=== PATIENT | female | born 1960 | race Caucasian/White ===

== ENCOUNTER 2024-04-01 23:29 | Inpatient (IN) | payer MEDICARE, OTHER, SELFPAY ==
[2024-04-01 19:52] VITALS: BP 151/131
[2024-04-01 21:00] VITALS: BP 104/80
[2024-04-01] MEDS: DILAUDID 0.5 MG IV (21:29)
--- NOTE | 2024-04-01 21:41 | ED.GENMED ---
History of Present Illness
General
Chief Complaint: Musculo-Skeletal Complaint
Source: patient and ambulance crew
Time Seen by Provider: 04/01/24 20:15
History of Present Illness
History of Present Illness:
63-year-old female who presents after she fell in a grocery store. She states she think she just tripped over her shoe. She complains of pain in her left elbow. Denies head injury. No neck pain. No back pain. No pain in her knees or hips.
Reports pain in her left elbow with some radiation toward her wrist. Has a history of ORIF of the left wrist. EMS reports that they gave her fentanyl (100 mcg)
Phy Exam
Physical Exam
Physical Exam:
CONSTITUTIONAL Vital signs reviewed, Patient alert and oriented to person, place and time. Well-appearing
HEAD atraumatic, normocephalic.
EYES eyelids normal to inspection, Extraocular muscles intact, Conjunctiva normal, Sclera normal.
NECK normal range of motion, Trachea midline, no jugular venous distention. No midline tenderness.
RESP no respiratory distress
BACK No obvious deformities
UPPER EXTREMITY Gross Range of motion normal, gross motor strength normal. Moderate tenderness throughout the area of the left elbow. No proximal humerus tenderness. No clavicular tenderness. No tenderness at the distal forearm or wrist. Hand
nontender. Normal distal cap refill. Normal gross radial pulse. Small less than 1 cm open wound noted just distal to the olecranon. Right upper extremity on affect
LOWER EXTREMITY Gross range of motion normal, Gross motor strength normal. Normal full range of motion bilateral knees and bilateral hips.
NEURO Speech normal, No focal motor deficits include, [place] coma scale 15, Memory normal, Cranial Nerves intact to screening exam.
SKIN Skin warm, dry, and normal in color.
PSYCHIATRIC Patient oriented to person place and time, Normal affect.
Course
Orders/Labs/Results
Orders:
Orders
04/01/24 20:03
CR Hand - Left Min 3 Views Urgent
Comment:
Reason For Exam: fall, trauma
CR Humerus - Left Min 2 Views* Urgent
Comment:
Reason For Exam: fall, trauma
Forearm, Left 2 View [CR Forearm - Left 2 View] Urgent
Comment:
Reason For Exam: fall, trauma
04/01/24 21:25
HYDROmorphone [Dilaudid] 0.5 mg IV NOW STA
04/01/24 21:42
CeFAZolin 2 GRAM [Ancef] 2 grams in 10 ml IV NOW
04/01/24 22:00
Flush (0.9% Sodium Chloride) [Flush (Nss)] See Dose Instructions IV PER PROTOCOL
04/01/24 22:16
Vital Signs- Treatment ONCE
Frequency: Once
04/01/24 22:44
Basic Metabolic Panel Urgent
Complete Blood Count/With Diff Urgent
04/01/24 23:03
Ondansetron Injectable [Zofran] 4 mg .ROUTE .STK-MED ONE
04/01/24 23:05
Ondansetron Injectable [Zofran] 4 mg IV NOW STA
04/01/24 23:12
EKG [Electrocardiogram (*1)] Urgent
Reason for Study: PreOp
04/01/24 23:17
Admit/Transfer Patient As Directed
Co-Sign Provider:
Level of Care: Inpatient admission
Assign to:: Telemetry
Physician / Group: Arnaldo
Diagnosis: Comminuted Ulna Fracture
Reason for Telemetry: Arrhythmia
Date to Stop Telemetry: 04/04/24
Time to Stop Telemetry: 11:00
Reason for Hospitalization: Comminuted Ulna Fracture
Expected length of stay greater than two midnights?: Yes
ELOS- Estimated Length of Stay in days: 3
I certify the patient meets the requirements for IP care: Yes
PRN Pain Medication Management As Directed
May give lesser potent ordered pain med per pt: Yes
preference::
Protocol:: Medication orders for pain may be administered in a
manner that supports deferring to patient preference
when the pt is:
- Requesting an ordered lesser potent pain medication.
Least to most potent pain medications are defined
as: acetaminophen < NSAID < tramadol < opioids
(morphine, oxycodone, hydromorphone).
- Requesting a lesser dose of the same medication IF
ORDERED.
- Requesting a less intrusive route of administration
if both routes are prescribed by the provider (PO <
IV).
04/01/24 23:20
Code Status As Directed
Resuscitation Status: Full Code
04/02/24 01:25
HYDROmorphone [Dilaudid] 0.5 mg IV Q4HPRN PRN
04/02/24 01:54
Acetaminophen [Tylenol] 650 mg PO Q4HPRN PRN
Lactated Ringers [Lr] 1,000 ml IV 80 mls/hr
Ondansetron Injectable [Zofran] 4 mg IV Q6HPRN PRN
VANCOMYCIN Pharmacy to Dose [VANCOCIN Pharmacy to Dose] 1 each Pharmacy To Prepare [Call Pharmacy To Prepare] 0 ml IV PER PROTOCOL
04/02/24 01:54
ORTHOPEDIC CONSULT Routine
Consulting Provider: Wan Vyas
Was physician already notified: Yes
Reason for consult: Comminuted Ulna Fracture
Activity As Directed
Activity Level: Ambulate
With Assistance
I/O [Intake/ Output] As Directed
Frequency: Per unit guidelines
Pneumatic Compression Sleeves As Directed
Type: Knee high
Vital Signs As Directed
Frequency: Per unit guidelines
Weight Bearing Status As Directed
Weight bearing to: Left upper extremity
Type: Non Wt. bearing
Oxygen Therapy [O2 Therapy] [RESP] Routine
Titrate/Wean O2 to maintain O2 sat greater than (%): 94
Ot Eval And Treat Routine
PT Consult [Pt Eval And Treat] Routine
Activity Level: Ambulate
With Assistance
DX Deep Vein Thrombosis Video Routine
04/02/24 Breakfast
NPO
Allow oral meds: Yes
Allow clear liquids: Sips of Clears
Basic Metabolic Panel IN AM
Complete Blood Count/No Diff IN AM
04/02/24 08:00
Famotidine [Pepcid] 20 mg PO BID
04/02/24 22:00
Duloxetine Delayed Release [Cymbalta Delayed Release] 60 mg PO HS
04/04/24 11:00
DC Protocol for Telemetry ONCE
Abnormal Lab Results
04/01/24
22:44
WBC 12.3 H 10^3/uL
(4.8-10.8)
MCHC 32.3 L g/dL
(33.0-37.0)
Absolute Neuts (auto) 11.2 H 10^3/uL
(1.4-6.5)
Absolute Lymphs (auto) 0.7 L 10^3/uL
(1.2-3.4)
Neutrophils % 91.6 H %
(42.2-75.2)
Lymphocytes % 5.5 L %
(20.5-51.1)
Glucose 198 H mg/dl
(70-99)
04/01/24 22:44
04/01/24 22:44
Vital Signs
Initial and Last Documented VS:
Initial Vital Signs
Temp Pulse Resp BP Pulse Ox
97.6 F 58 20 151/131 97
04/01/24 19:52 1824 19:52 04/01/24 19:52 04/01/24 19:52 04/01/24 19:52
Last Documented Vital Signs
Temp Pulse Resp BP Pulse Ox
97.6 F 76 13 151/67 97
04/01/24 19:52 04/02/24 00:00 04/02/24 00:00 04/01/24 23:45 04/01/24 22:49
MDM/Problems Addressed
Differential Diagnosis Includes:
Humeral fracture, forearm fracture, wrist fracture
MDM/Problems Addressed:
Open proximal ulnar fracture
*Radiology
Radiology exam reviewed: preliminary read by ED provider (Proximal ulnar fracture)
*Pulse Oximetry
Patient hypoxic: no
*Critical Care Note
Total Time (30-74mins, 75-104mins- exclusive of procedures): Not Applicable
Data Reviewed
Source: patient and ambulance crew
Prescriptions/Medications Considered But Not Given:
Consider penicillins patient reports rash with penicillin. Does not recall any issues with cephalosporins
Patient Management
Discussion with other providers: Stone Paver (Case discussed with Dr. Vyas from orthopedics. Admit, n.p.o. after midnight. For surgery tomorrow)
Escalation/DeEscalation of care consider admission/obs:
Patient irrigated with more than 1 L of saline. Vaseline dressing and dressing applied with long-arm splint. Ancef given. Admit
ED Attending Note
-
Portions of this chart may have been created with voice recognition software.� Occasional wrong word or��sound alike� substitutions may have occurred due to the inherent limitations of voice recognition software.
Discharge Plan
Departure
Patient Disposition: Admit
Date of Disposition: 04/01/24
Time of Disposition: 21:41
Admit to: Med/Surg
Presentation/result/management discussed w/ accepting MD/DO: Hospitalist
Discharge Problem:
Open forearm fracture
Interventions
Interventions:
*Risk Screen - Suicide Last Done: 04/01/24 19:52
*General Assessment Last Done: 04/01/24 19:52
*Neglect/Abuse Screening Last Done: 04/01/24 19:52
ED- Fall Risk Assessment Last Done: 04/01/24 20:21
*ED COVID-19 Vaccine History Last Done: 04/01/24 19:52
ED-Musculoskeletal Assessment Last Done: 04/01/24 20:21
[2024-04-01] MEDS: ANCEF 10 IV (22:45)
[2024-04-01 22:49] VITALS: BP 173/85
[2024-04-01 22:59] LABS: % Basophils 0.4 % (0-2); % Eosinophils 0.2 % (0-6); % Immature Granulocytes 0.3 % (0-0.5); % Lymphocytes 5.5 % (20.5-51.1); % Neutrophils 91.6 % (42.2-75.2); Absolute Basophils 0.1 10^3/uL (0-0.2); Absolute Lymphocytes 0.7 10^3/uL (1.2-3.4); Absolute Monocytes 0.3 10^3/uL (0.1-0.6); Absolute Neutrophils 11.2 10^3/uL (1.4-6.5); Hematocrit 40.6 % (37.0-47.0); Hemoglobin 13.1 g/dL (12.0-16.0); Mean Corp Hgb Conc. 32.3 g/dL (33.0-37.0); Mean Corpuscular Hgb 30.8 pg (27.0-31.0); Mean Corpuscular Volume 95.3 fL (81.0-99.0); Mean Platelet Volume 8.8 fL (7.4-10.4); Nucleated Red Blood Cells % 0 %; Platelet Count 315 10^3/uL (130-400); Red Blood Cell Count 4.26 10^6/uL (4.20-5.40); Red Cell Dist. Width 12.9 % (11.5-14.5); White Blood Cell Count 12.3 10^3/uL (4.8-10.8)
[2024-04-01] MEDS: ZOFRAN 4 MG IV (23:06)
[2024-04-01 23:20] LABS: Blood Urea Nitrogen 12 mg/dl (7-17); Calcium 9.8 mg/dl (8.4-10.2); Carbon Dioxide 25 mmol/L (22-30); Chloride 100 mmol/L (98-107); Estimated Creatinine Clearance 93 ml/min; Glucose 198 mg/dl (70-99); Potassium 3.6 mmol/L (3.5-5.1); Sodium 135 mmol/L (135-145); eGFR > 60.00
--- NOTE | 2024-04-01 23:22 | HPS.HSE ---
Family Physician
-
Family Physician: Paulino Palencia MD
Chief Complaint
-
L Arm Pain s/p Fall
History of Present Illness
Patient is a 63y F with PMH significant for multiple sclerosis not currently on medication who presents to ED complaining of L arr pain s/p fall. Patient states that she was at the grocery store this evening when she turned and fell. She denies
any prodrome of dizziness, lightheadedness, chest pain or palpitations. She believes she may have tripped over her own shoes. She fell forward landing on her outstretched L hand and then her L elbow contacted the floor. She denies any had injury,
LOC, etc. Patient reports pain in the L elbow / arm and the entire L side following her fall.
Patient denies any recent illness. She denies any history of complications related to surgery / anesthesia.
Patient was nauseated and diaphoretic at the time of my examination and had an episode of non-bloody emesis.
She feels improved following emesis and Zofran administration.
Medical History
Past Medical History
Past Medical History: Reports Other
Additional Past Medical History:
Multiple Sclerosis
Anxiety / Depression
GERD
Past Surgical History: Reports Other
Additional Past Surgical History:
Left Distal Radius ORIF
Appendicitis
Social History
Tobacco: Former Smoker (Quit smoking 10 years ago.)
Alcohol: Occasional
Drug: None
Family History
Family History: Not pertinent
Allergies / Home Medications
Allergies reflects when Allergies were last updated in [employer].
Home Medications with original date entered in [employer]
Allergy/Medication List:
Allergies
Allergy/AdvReac Type Severity Reaction Status Date / Time
levofloxacin [From Levaquin] Allergy Unknown Verified 04/01/24 21:44
Penicillins Allergy Rash Verified 04/01/24 21:44
Home Medications
acetaminophen 500 mg tablet (Tylenol Extra Strength) 500 mg PO HS 04/01/24
cholecalciferol (vitamin D3) 25 mcg (1,000 unit) tablet (Vitamin D3) 25 mcg PO HS 04/01/24
duloxetine 60 mg capsule,delayed release 60 mg PO HS 04/01/24
famotidine 20 mg tablet 20 mg PO BID 04/01/24
magnesium oxide 250 mg PO HS 04/01/24
Review of Systems
-
History Source: Patient
A 12 point ROS was completed and negative except as noted: Yes
Constitutional: Denies Fever or Chills
Respiratory: Denies Cough or Trouble Breathing
Cardiac: Denies Chest Pain or Palpitations
Abdomen/GI: Reports Nausea and Vomiting; Denies Abdominal Pain or Diarrhea
: Denies Dysuria, Frequency or Flank Pain
Musculoskeletal: Reports Joint Pain
Neurological: Denies Dizzy or Headache
Psych: Denies Depression or Anxiety
Physical Exam
Vital Signs
Vital Signs
Temp Pulse Resp BP Pulse Ox
97.6 F 83 18 173/85 97
04/01/24 19:52 04/01/24 22:49 04/01/24 22:49 04/01/24 22:49 04/01/24 22:49
Physical Exam
General: Other (63y F in mild distress due to pain.)
HEENT: Moist mucous membranes and PERRLA
Respiratory: Clear; No Wheezes, Rales or Rhonchi
Cardiac: S1/S2 and Regular Rhythm; No Murmur
GI: Soft, Non Tender, Non Distended and Normal Bowel Sounds
Musculoskeletal: Other (LUE wrapped in bulky dressing / immobilized at present. Distally neurovascularly intact.); No No Clubbing or No Cyanosis
Neuro: AO x 3
Laboratory Results
-
04/01/24 22:44
04/01/24 22:44
Impression/Plan
-
A/P: Patient is a 63y F with PMH significant for MS who presents to ED complaining of L elbow pain s/p fall.
Type I Open, Comminuted Proximal Ulna Fracture
- Admit for further evaluation and treatment.
- < 1cm wound over the elbow. Copiously irrigated in the ED.
- IV abx - will cover with Vancomycin given PCN allergy and N/V in the ED s/p Ancef administration.
- Ortho evaluation for operative repair.
- Patient with no personal history of CO / CVA / etc. No prior complications related to surgery / anesthesia.
- Patient is at average risk for complications. Benefits of planned procedure outweigh the potential risks.
- Patient is OK to proceed to OR without additional pre-op evaluation(s).
- Post-op care per Ortho.
Anxiety / Depression
- Stable. Continue current medications.
MS
- Currently asymptomatic. Not on any active medications / treatment.
DVT Prophylaxis: SCDs
Code Status: Full
[2024-04-01 23:45] VITALS: BP 151/67
[2024-04-02] VITALS (12 sets, daily range): BP systolic 126–208; BP diastolic 78–147; BMI 29.6
[2024-04-02] MEDS: DILAUDID 0.5 MG IV ×3 (01:41→12:26)
[2024-04-02] MEDS: LR 1000 IV (02:45)
[2024-04-02] MEDS: VANCOCIN 540 MG IV (02:48)
--- NOTE | 2024-04-02 03:45 | PTCARENOTE ---
Addendum entered by Aleksandra Schwab RN 04/02/24 04:36:
Pre op EKG done in ER as per RN
Original Note:
Received patient from ER. stable Vitals. Patient saying ' pain manageable'. Applied sling to left arm as patient holding with right arm. NPO. SR in 70s . POC reviewed with patient.
[2024-04-02] MEDS: TYLENOL 650 MG PO ×2 (05:31→12:39)
[2024-04-02] MEDS: ZOFRAN 4 MG IV ×2 (06:14→12:35)
[2024-04-02 06:59] LABS: Hematocrit 41.9 % (37.0-47.0); Mean Corp Hgb Conc. 33.4 g/dL (33.0-37.0); Mean Corpuscular Hgb 30.6 pg (27.0-31.0); Mean Corpuscular Volume 91.5 fL (81.0-99.0); Platelet Count 326 10^3/uL (130-400); Red Blood Cell Count 4.58 10^6/uL (4.20-5.40); Red Cell Dist. Width 12.9 % (11.5-14.5); White Blood Cell Count 11.1 10^3/uL (4.8-10.8)
--- NOTE | 2024-04-02 07:00 | W.PN.UPDATE ---
Update Note
Progress Note Update
Patient seen evaluated and chart reviewed this morning
Obtain additional imaging for preoperative planning purposes
Plan for I&D open reduction term fixation of the left open ulna/Monteggia fracture later today pending OR availability and medical clearance
NPO
Please hold anticoagulation preparation for
Formal consult note to follow
[2024-04-02 07:24] LABS: Blood Urea Nitrogen 12 mg/dl (7-17); Calcium 9.9 mg/dl (8.4-10.2); Carbon Dioxide 23 mmol/L (22-30); Chloride 103 mmol/L (98-107); Estimated Creatinine Clearance 92 ml/min; Glucose 110 mg/dl (70-99); Potassium 4.5 mmol/L (3.5-5.1); Sodium 136 mmol/L (135-145); eGFR > 60.00
[2024-04-02] MEDS: PEPCID 20 MG PO (07:36)
[2024-04-02 08:54] LABS: Glycohemoglobin (HgbA1c) 5.7 % (4.0-5.6)
--- NOTE | 2024-04-02 12:46 | CM ---
Met with pt at bedside
Pt reports she lives with her and son in a ranch style home;no steps to enter
Pt has hx of MS - was independent with ADL's, ambulation and drives
DME - [employer], rolling walker
SNF - denies past hx
HH - has had home infusion in past - unsure of agency
Has ride at discharge
PCP - Paulino Ni
Pharm - [facility]
Poss OR today for surgical repair
Plan - TBD post-operatively. CM will follow
[2024-04-02] MEDS: ANCEF 10 IV (13:27)
--- NOTE | 2024-04-02 15:43 | W.PN.HOSP.TC ---
Today's Communication/Plan
-
OR
Assessment / Plan
Assessment / Plan
Impression:
Patient is a 63 years old female with past medical history of multiple sclerosis who presents after mechanical fall with type I left elbow comminuted proximal ulnar fracture
Type 1 open comminuted proximal ulnar fracture.
Less than 1 cm wound over the elbow.
Orthopedic input appreciated.
Patient is cleared for surgical intervention with average risk.
Continue perioperative antibiotic. Initiated on Keflex with reported nausea. Less likely allergic reaction. Symptoms likely related to hydromorphone given for pain in ED. Transition back of vancomycin to Keflex
Follow surgical recommendation for antibiotics postoperatively
Multiple sclerosis
Currently asymptomatic not on any active treatment.
Anxiety/depression. Stable. Continue preadmission regimen including duloxetine
Anticipated Discharge: 24 - 48 hours
Subjective/Interval History
-
Date of Service: April 02, 2024
Objective Data
-
Labs:
Laboratory Results
04/02/24
05:40
WBC 11.1 H
Hgb 14.0
Hct 41.9
Plt Count 326
Sodium 136
Potassium 4.5
Chloride 103
Carbon Dioxide 23
BUN 12
Creatinine 0.6
Glucose 110 H
Calcium 9.9
Vital Signs:
Vital Signs
Temp Pulse Resp BP Pulse Ox
97.9 F 73 16 168/97 97
04/02/24 11:40 04/02/24 11:40 04/02/24 11:40 04/02/24 11:40 04/02/24 11:40
I&O
04/01/24 04/02/24 04/03/24
06:59 06:59 06:59
Intake Total 200 / 200
Balance 200 / 200
Physical Exam
-
General: Well Developed and No Apparent Distress
HEENT: Normocephalic, Atraumatic and Moist Mucous Membranes
Respiratory: Clear to Auscultation
Cardiac: Regular Rhythm and S1/S2; Negative Murmur, Rub or Gallop
GI: Soft, Nontender, Nondistended and Normal Bowel Sounds; Negative Organomegaly
Rectal: Deferred by Provider
Musculoskeletal: No Clubbing, No Cyanosis and No Edema
Skin: Negative Rash
Neuro: Nonfocal/Grossly Intact
--- NOTE | 2024-04-02 18:45 | CON.ORTHO ---
Consultation - Orthopedics
History
HPI: 63-year-old [id number] female presents emergency department complaints of left elbow pain status post mechanical fall. She subsequently diagnosed with type I open left [place] injury proximal ulna fracture. She underwent thorough
irrigation in the emergency department IV antibiotics were initiated she was placed in a posterior slab splint was admitted to the hospital service for further evaluation and treatment. Orthopedics was consulted. Patient reports that she tripped
and fell while at the grocery store. She did notice some bleeding at the time of the fall. She reports pain well localized to the left elbow. She reports that she is comfortable at rest in a splint however. She does report history of multiple
sclerosis but reports she is not currently on any medications and this does not affect her ability to ambulate.
Allergies / Home Medications
Past medical history: Multiple sclerosis, GERD, anxiety/depression
Past surgical history: Left distal radius open reduction term fixation, appendectomy
Social history: Former smoker
Family history: Not pertinent
Allergy/AdvReac Type Severity Reaction Status Date / Time
levofloxacin [From Levaquin] Allergy Unknown Verified 04/01/24 21:44
Penicillins Allergy Rash Verified 04/01/24 21:44
�Medication �Instructions �Recorded
acetaminophen 500 mg tablet 500 mg PO HS Pain 04/01/24
(Tylenol Extra Strength)
cholecalciferol (vitamin D3) 25 25 mcg PO HS Supplement 04/01/24
mcg (1,000 unit) tablet (Vitamin
D3)
duloxetine 60 mg capsule,delayed 60 mg PO HS Neurological Condition 04/01/24
release
famotidine 20 mg tablet 20 mg PO BID Gastrointestinal Issue 04/01/24
magnesium oxide 250 mg PO HS Supplement 04/01/24
Vital Signs / Lab Results
Temp Pulse Resp BP Pulse Ox
98.0 F 78 16 126/83 100
04/02/24 15:00 04/02/24 15:00 04/02/24 15:00 04/02/24 15:00 04/02/24 15:00
04/02/24 05:40
04/02/24 05:40
10 point review systems reviewed and negative unless otherwise stated
General: Pleasant, no acute distress at rest
Musculoskeletal left upper extremity
Well-padded posterior slab splint in place
Exposed digits warm sensate mobile
Patient is able to actively extend fingers wrist and retropulse thumb
Sensations intact to light touch in all distributions distally
Prescribe refill
No other areas of bony tenderness to palpation or crepitation of long bones or joints on tertiary exam
Diagnostic studies
X-rays elbow forearm humerus and CT scan elbow reviewed by myself. There is a proximal ulnar fracture with posterior dislocation of the radiocapitellar joint. There is no obvious fracture of the radial head or neck. There is moderate comminution
noted metaphyseal diaphyseal junction of the proximal ulna. There does not appear to be any extension of fracture to the articular surface. There does not appear to be any significant fracture to the coronoid]
Assessment / Plan
63-year-old [id number] female status post fall with type I open left [place] fracture with posterior radiocapitellar dislocation. I do long detailed discussion with the patient regarding diagnosis and treatment options. Discussed both
surgical nonsurgical options. Given the fracture as well as the open nature of the injury, was my recommendation to proceed with surgery. We discussed risks benefits and alternatives to surgery. Discussed usual expected perioperative and
postoperative course. After our discussion written informed consent was obtained for open reduction total fixation left proximal ulna fracture, possible open reduction total fixation versus arthroplasty radial head/neck with irrigation debridement
of open wound. Specifically I did discuss with patient possibility neurovascular injury as well as the likely scenario of reduced range of motion postoperatively. She voiced understanding and was in agreement with proceeding with surgery.
Nonweightbearing left upper extremity in splint
N.p.o.
Please hold DVT prophylaxis
Medical management per primary team
Pain control
Plan: 2 OR today for open reduction internal fixation left proximal ulna fracture, possible open reduction term fixation versus arthroplasty radial head/neck, with irrigation debridement of open wound pending or availability and medical clearance
--- NOTE | 2024-04-02 23:48 | OR.RPT ---
Operative Report
Operative Report
Anesthesia Type:
General
Operative Indications:
Open left proximal ulnar fracture, Monteggia injury with posterior radial capitellar dislocation
Operative Findings :
Same, continued radiocapitellar instability with pronosupination after fixation of fracture, there was noted to be disrupted lateral ulnar collateral ligament that was repaired
Complications:
None
Implants:
[employer] proximal ulnar plate
Procedure and Technique:
Open reduction term fixation left ulna, lateral ulnar collateral ligament repair
INDICATIONS FOR PROCEDURE:
Patient is an active 63-year-old [id number] female sustained mechanical fall onto her left elbow. She was seen emergency department diagnosed with open left Monteggia injury admitted to the hospital service after undergoing thorough
irrigation and the emergency department preliminary splinting and initiation of IV antibiotics. Orthopedics was consulted. I had a long discussion the patient regarding diagnosis and treatment options. Discussed both surgical nonsurgical options.
After discussion we mutually agreed to proceed with open reduction term fixation left ulna fracture, possible open reduction, fixation versus arthroplasty left radial head/neck fracture with irrigation debridement of open wound and all indicated
procedures. We discussed risks benefits and alternatives to surgery. Discussed the usual expected perioperative and postoperative course. Specifically we discussed risk of infection given the open nature of the injury as well as stiffness and
recurrent instability given the nature of the injury. After discussion written informed consent was obtained
OPERATIVE PROCEDURE:
Patient was seen identified the preoperative holding area. Operative extremities marked. All questions were addressed and answered. She was taken to the operating room where general anesthesia was administered. She was placed in a lateral
decubitus position. The operative extremity was prepped and draped in normal sterile fashion. Nonsterile tourniquet was applied. Timeout was performed again identifying the correct operative extremity. Preoperative antibiotics were addressed.
There was noted to be a small 1 cm wound over the ulnar border of the forearm proximally they did communicate the fracture. This was incorporated into the posterior approach to the ulna. Open wound was copiously irrigated normal saline solution
approximately 3 L and excisional debridement was performed of devitalized tissues utilizing sharp dissection. Standard posterior approach to the proximal ulna was taken. Traumatic rent was noted and this was taken down to the ulna and [facility]
interval was utilized. The proximal fracture was identified and there was noted to be quite substantial comminution. Preliminary radiographs confirmed posterior dislocation of the radiocapitellar joint and instability pronosupination. Preliminary
reduction was performed with the aid of K wires. Proximal and the plate was then placed and fixation was achieved. Decision was made to proceed with bridge type fixation. Distally bicortical fixation was achieved to suck the plate down to bone.
Proximally multiple locking screws were placed. The arm was then taken through range of motion pronosupination and there was persistent instability radiocapitellar joint. The plate was removed and there was noted to be some mild shortening the
comminution site. Repeat preliminary fixation with K wires was performed utilizing cortical reads multiple locations. Fluoroscopy was also utilized and the fracture was noted to be out to appropriate length. Again a plate was placed and
bicortical fixation was achieved distally the fracture site was bridged and multiple locking screws were placed into the proximal fragment. The elbow was again taken through range of motion pronosupination found to be unstable. Instability was
particularly notable and supination. At this point the decision was made to explore the radiocapitellar joint further to evaluate ligamentous integrity. There was noted to be quite substantial comminution over the mague supinatoris. Sharp
dissection was carried subperiosteally off the lateral proximal ulna. There is noted to be complete disruption of the lateral ulnar collateral ligament as well as capsule. I decision was made to repair the comminuted mague supinatoris through
bone tunnel. #2 FiberWire was passed around the comminuted fragment that did have soft tissue attachment present and this was tied over a bone bridge and good fixation was achieved. I decision was then made to repair the lateral ulnar collateral
ligament and capsule through bone tunnels. Four #2 FiberWire's were utilized in a Elder-Delmar suture configuration and repaired over bone tunnels into the proximal ulna. After repair there was noted to be significant improvement and stability of
pronosupination. Orthogonal radiographs confirmed appropriate length of the ulna as well as reduction of the radiocapitellar joint. Live fluoroscopy was utilized to stress the elbow and range the elbow through flexion extension pronosupination and
the elbow was found to be stable. Satisfied with extent surgery, wound was copiously irrigated with normal saline solution. 1 g of vancomycin was placed in the wound. Wound was closed in layered fashion lysing #1 Vicryl for deep fascial layer 2-0
Vicryl for subcutaneous layer and donato for skin. Sterile dressings were applied consisting of Xeroform, 4 x 4 gauze, ABD Webril. Patient was placed in a posterior slab splint in neutral forearm position. Anesthesia was versed and patient was
taken to PACU in stable condition. Postoperative plans include nonweightbearing to the operative extremity and posterior slab splint and sling. Will recommend 24 hours of IV antibiotics (Ancef) for type I open fracture. Plan to see patient back
in office in 2 weeks for repeat evaluation with planned removal of donato.
Disposition:
PACU stable condition
[2024-04-03] VITALS (13 sets, daily range): BP systolic 145–179; BP diastolic 74–99; PULSE 98; O2SAT 97
[2024-04-03] MEDS: LR IV ×2 (00:36→00:56)
[2024-04-03] MEDS: CYMBALTA DELAYED RELEASE PO (00:37)
[2024-04-03] MEDS: PEPCID PO (00:37)
--- NOTE | 2024-04-03 00:45 | PTCARENOTE ---
Pt arrived to pacu restless, agitated, and was not following commands and within few mins she was following commands.
[2024-04-03] MEDS: ANCEF IV (00:57)
[2024-04-03] MEDS: NSS 1000 IV (00:57)
--- NOTE | 2024-04-03 02:06 | PTCARENOTE ---
Addendum entered by Aleksandra Schwab RN 04/03/24 02:08:
Bp- 179/91, HR- 89. sleeping. Notified KRISHAN Guerrero
Original Note:
Received patient from PACU. Pt AAOX3, Drowsy. No complaints at this time. Left Upper arm covered with splint/acewrap. POC reviewed with patient.
[2024-04-03] MEDS: ANCEF 10 IV ×3 (05:06→22:37)
[2024-04-03] MEDS: LOVENOX 40 MG SC (09:43)
[2024-04-03] MEDS: PEPCID 20 MG PO ×2 (09:44→19:16)
[2024-04-03] MEDS: COLACE 100 MG PO ×2 (09:44→19:17)
[2024-04-03] MEDS: ROXICODONE 10 MG PO ×3 (09:51→23:12)
--- NOTE | 2024-04-03 13:59 | W.PN.HOSP.TC ---
Today's Communication/Plan
-
Adjust analgesic regimen
Continue IV antibiotics for another 24 hours postsurgery (type I fracture with open wound)
Physical therapy assessment
Assessment / Plan
Assessment / Plan
Impression:
Patient is a 63 years old female with past medical history of multiple sclerosis who presents after mechanical fall with type I left elbow comminuted proximal ulnar fracture
Type 1 open comminuted proximal ulnar fracture.
Less than 1 cm wound over the elbow.
Orthopedic input appreciated.
Patient is cleared for surgical intervention with average risk.
Status post ORIF of the left proximal ulnar fracture with wound I&D.
Plan is to continue IV antibiotics for 24 hours postsurgery.
Multiple sclerosis
Currently asymptomatic not on any active treatment.
Anxiety/depression. Stable. Continue preadmission regimen including duloxetine
Anticipated Discharge: Within 24 hours
Subjective/Interval History
-
Date of Service: April 03, 2024
Objective Data
-
Vital Signs:
Vital Signs
Temp Pulse Resp BP Pulse Ox
98.3 F 98 16 153/74 96
04/03/24 11:00 04/03/24 11:00 04/03/24 11:00 04/03/24 11:00 04/03/24 11:00
I&O
04/02/24 04/03/24 04/04/24
06:59 06:59 06:59
Intake Total 1909 320 / 320
Balance 1909 320 / 320
Physical Exam
-
General: Well Developed and No Apparent Distress
HEENT: Normocephalic, Atraumatic and Moist Mucous Membranes
Respiratory: Clear to Auscultation
Cardiac: Regular Rhythm and S1/S2; Negative Murmur, Rub or Gallop
GI: Soft, Nontender, Nondistended and Normal Bowel Sounds; Negative Organomegaly
Rectal: Deferred by Provider
Musculoskeletal: No Clubbing, No Cyanosis and No Edema
Skin: Negative Rash
Neuro: Nonfocal/Grossly Intact
--- NOTE | 2024-04-03 14:18 | CM ---
Chart reviewed. Met with pt
L prox ulna ORIF yesterday
PT/OT - no needs
Pain management today; IV antibiotics
Plan - anticipate home no needs when medically ready
[2024-04-03] MEDS: TYLENOL 650 MG PO (14:26)
[2024-04-03] MEDS: ROXICODONE 5 MG PO (14:27)
[2024-04-03] MEDS: NSS IV (15:04)
--- NOTE | 2024-04-03 17:36 | W.PN.ORTHO ---
Today's Communication / Plan
-
63-year-old female postop day 1 status post open reduction term fixation left type I open Monteggia fracture.
Nonweightbearing left upper extremity in splint and sling
PT OT
IV antibiotics (Ancef) x 24 hours postoperatively
Pain control
DVT prophylaxis per primary team
Plan to follow-up outpatient with myself in 2 weeks for planned removal of donato repeat evaluation with radiographs.
Assessment
.
Dressing:
Clean, dry and intact.
Subjective
.
.:
Patient resting comfortably in bed. Pain controlled.
Vital Signs and Labs
.
Vital Signs and Labs:
Lab Results
04/02/24 05:40
04/02/24 05:40
Temp Pulse Resp BP Pulse Ox
98.2 F 72 16 145/77 97
04/03/24 15:00 04/03/24 15:00 04/03/24 15:00 04/03/24 15:00 04/03/24 15:00
Physical Exam
-
Musculoskeletal left upper extremity
Splint in place
Exposed fingers warm sensate mobile
Sensation intact to light touch in all dispositions distally
Able to retropulse thumb and extend wrist and fingers
[2024-04-03] MEDS: CYMBALTA DELAYED RELEASE 60 MG PO (22:37)
[2024-04-04 03:19] VITALS: BP 123/65
[2024-04-04] MEDS: ANCEF 10 IV ×3 (05:41→22:18)
[2024-04-04] MEDS: ROXICODONE 10 MG PO ×2 (05:45→09:53)
[2024-04-04 07:00] VITALS: BP 130/70
[2024-04-04] MEDS: PEPCID 20 MG PO ×2 (09:41→20:40)
[2024-04-04] MEDS: TYLENOL 650 MG PO ×3 (09:41→22:17)
[2024-04-04] MEDS: COLACE 100 MG PO (09:41)
[2024-04-04] MEDS: LOVENOX 40 MG SC (09:42)
--- NOTE | 2024-04-04 10:58 | W.PN.HOSP.TC ---
Addendum entered and electronically signed by Gabriele Flowers MD 04/04/24 16:16:
Patient received increasing amount of oxycodone 10 mg yesterday due to severe pain.
Patient states she feels loopy/groggy. Decreased appetite. Did work with PT earlier today. Will hold discharge for today. IV fluid bolus. Stop IV narcotics and decrease Oxy dose for severe pain only.
Patient verbalized understanding to avoid taking increasing amount of opioids
Discussed with RN.
Original Note:
Today's Communication/Plan
-
dc home
Op ortho f/u
Assessment / Plan
Assessment / Plan
Impression:
Patient is a 63 years old female with past medical history of multiple sclerosis who presents after mechanical fall with type I left elbow comminuted proximal ulnar fracture
Type 1 open comminuted proximal ulnar fracture.
Less than 1 cm wound over the elbow.
Orthopedic input appreciated.
Status post ORIF of the left proximal ulnar fracture with wound I&D.
Completed course of antibiotic post surgery. Initial plan was 24 hours post surgery.
Patient will require outpatient orthopedic follow-up
Pain control. Bowel regimen
Multiple sclerosis
Currently asymptomatic not on any active treatment.
Anxiety/depression. Stable. Continue preadmission regimen including duloxetine
More than 30 minutes spent in discharge including
Final examination of the patient
Summarizing hospital stay
Instructions for continuing care to all relevant caregivers
Preparation of discharge records, prescriptions, and referral forms
Total time spent (in minutes): 53
Anticipated Discharge: Today
Subjective/Interval History
-
Date of Service: April 04, 2024
states of intermittent LUE pain
able to wiggle/move left hand
Objective Data
-
Vital Signs:
Vital Signs
Temp Pulse Resp BP Pulse Ox
97.0 F 81 14 130/70 92
04/04/24 07:00 04/04/24 07:00 04/04/24 07:00 04/04/24 07:00 04/04/24 07:00
I&O
04/03/24 04/04/24 04/05/24
06:59 06:59 06:59
Intake Total 1909 1550 / 1550 320 / 320
Balance 1909 1550 / 1550 320 / 320
Physical Exam
-
General: Well Developed and No Apparent Distress
HEENT: Normocephalic, Atraumatic and Moist Mucous Membranes
Respiratory: Clear to Auscultation
Cardiac: Regular Rhythm and S1/S2; Negative Murmur, Rub or Gallop
GI: Soft, Nontender, Nondistended and Normal Bowel Sounds; Negative Organomegaly
Rectal: Deferred by Provider
Musculoskeletal: No Clubbing, No Cyanosis, No Edema and Other (LUE in sling/mike wrapped. Able to wiggle all fingers on left hand. No severe swelling. )
Skin: Warm; Negative Rash
Neuro: Awake, Oriented, AO x 3, No Motor Deficits and Nonfocal/Grossly Intact
Psych: Calm
[2024-04-04 11:00] VITALS: BP 116/66
--- NOTE | 2024-04-04 11:20 | W.[place]-PDMP ---
[place]PD[place]
-
Checked the [place]- Prescription Drug Monitoring Program website, no red flags identified; safe to proceed with prescription.
--- NOTE | 2024-04-04 11:44 | CM ---
Addendum entered by Francia Rowley 04/04/24 11:53:
referral sent to [facility] and IMM provided to patient to sign when she is more awake.
Original Note:
Patient seen at bedside. Provided IMM but patient very sleepy and requesting VN referral. CM will tt to physician and patient stated that she will go home with her son. CM will continue to follow for discharge planning needs.
Plan; VN; [facility] requested.
[2024-04-04 15:00] VITALS: BP 132/79
--- NOTE | 2024-04-04 16:04 | PTCARENOTE ---
1150: TT Dr. Vyas pt has received another 10mg oxycodone by pain request and is very groggy. Is alert and can answer questions, but not going to be able to leave for a while. Also RX for home is 10mg, need to change. pt thought shift monitored.
VSS Alert to answer questions , time, place, president, walked hallway, with PT. Narcan considered by Dr. Flowers, he d/c 10mg home meds change to 5mg, also d/c in house meds, Adding IVF. Only to give APAP thru night. Encourage eating
[2024-04-04] MEDS: NSS 1000 IV (16:46)
--- NOTE | 2024-04-04 16:58 | PTCARENOTE ---
1450:her hand is more swollen and that piece of bandage that goes b/t thumb and pointer fingers rolls up and looks as if it becomes constrictive. fixing. Notified 's Asael and Kristie. Reminding pt to keep arm on pillows elevated two ice
packs rotated/on together
[2024-04-04] MEDS: ZOFRAN 4 MG IV (20:17)
[2024-04-04] MEDS: SENOKOT-S 1 TABLET PO (20:40)
[2024-04-04] MEDS: CYMBALTA DELAYED RELEASE 60 MG PO (22:18)
[2024-04-04 23:25] VITALS: BP 171/80
[2024-04-05] MEDS: TYLENOL 650 MG PO ×2 (03:25→11:43)
[2024-04-05] MEDS: ANCEF 10 IV (06:31)
[2024-04-05 07:00] VITALS: BP 156/81
--- NOTE | 2024-04-05 10:46 | CM ---
Patient seen at bedside. Patient states she feels better and plan is for discharge home with [facility] to follow at home. IMM completed and signed form on chart. CM will continue to follow for discharge planning needs.
Plan; home with [facility] to follow
--- NOTE | 2024-04-05 10:46 | W.PN.HOSP.TC ---
Today's Communication/Plan
-
dc home OP ortho f/u
Assessment / Plan
Assessment / Plan
Impression:
Patient is a 63 years old female with past medical history of multiple sclerosis who presents after mechanical fall with type I left elbow comminuted proximal ulnar fracture
Type 1 open comminuted proximal ulnar fracture.
Less than 1 cm wound over the elbow.
Orthopedic input appreciated.
Status post ORIF of the left proximal ulnar fracture with wound I&D.
Completed course of antibiotic post surgery. Initial plan was 24 hours post surgery.
Patient will require outpatient orthopedic follow-up
Pain control. Decrease pain meds dose to 5 mg oxycodone. Bowel regimen
Multiple sclerosis
Currently asymptomatic not on any active treatment.
Anxiety/depression. Stable. Continue preadmission regimen including duloxetine
More than 30 minutes spent in discharge including
Final examination of the patient
Summarizing hospital stay
Instructions for continuing care to all relevant caregivers
Preparation of discharge records, prescriptions, and referral forms
Total time spent (in minutes): 52
Anticipated Discharge: Today
Subjective/Interval History
-
Date of Service: April 05, 2024
Feeling better
Not loopy or groggy from pain medication
Tolerating diet
Objective Data
-
Vital Signs:
Vital Signs
Temp Pulse Resp BP Pulse Ox
97.9 F 80 14 156/81 96
04/05/24 07:00 04/05/24 07:00 04/05/24 07:00 04/05/24 07:00 04/05/24 07:00
I&O
04/04/24 04/05/24 04/06/24
06:59 06:59 06:59
Intake Total 1550 / 1550 2825 / 2825
Balance 1550 / 1550 2825 / 2825
Physical Exam
-
General: Well Developed and No Apparent Distress
HEENT: Normocephalic and Moist Mucous Membranes
Respiratory: Negative Accessory Resp Muscle Use
Cardiac: Negative Murmur, Rub or Gallop
GI: Nontender, Nondistended and Normal Bowel Sounds; Negative Organomegaly
Rectal: Deferred by Provider
Musculoskeletal: No Clubbing, No Cyanosis, No Edema and Other (LUE in sling/mike wrapped. Able to wiggle all fingers on left hand. No severe swelling. )
Skin: Warm; Negative Rash
Neuro: Awake, Alert, Oriented, AO x 3, No Motor Deficits and Nonfocal/Grossly Intact
Psych: Calm
--- NOTE | 2024-04-05 10:48 | W.DCSUMMARY ---
Discharge Summary
Discharge Data
Date of Admission: 04/01/24
Date of Discharge: 04/05/24
-
Pending Results: No
Hospital Course
63-year-old female past medical history of MS who is presenting after mechanical fall and was found to have a type I open comminuted proximal ulna fracture. Patient was eval by orthopedic and patient underwent urgently to the surgery by [facility]
orthopedics. Patient underwent open reduction internal fixation of the left proximal ulnar fracture. Wound was I&D. Patient postop was recommended to receive 24 hours of antibiotics. Postop patient received pain control. Patient was eval by
physical and Occupational Therapy. Home VN was ordered. Patient to be discharged home with outpatient follow-up with Dr. Wan Vyas.
Discharge Plan
-
Patient Disposition: Home (Routine Discharge)
Discharge Diagnosis/Procedures: left type I open Monteggia fracture status post open reduction internal fixation
Condition: Fair
Diet: As tolerated
Activity: With assistance and As tolerated
Driving Restrictions: No driving
Activity Restrictions/Additional Instructions:
Plan to follow-up outpatient with Dr. Vyas in 2 weeks for planned removal of donato repeat evaluation with radiographs.
Referrals:
Paulino Palencia MD [Family Provider] - in less than 1 week
Wan Vyas MD [Active] - in two weeks (call to make appt. )
Prescriptions:
New
senna 8.6 mg capsule
8.6 mg PO BID Qty: 14 0RF
polyethylene glycol 3350 [Miralax] 17 gram powder in packet
17 g PO DAILY PRN (Reason: constipation) Qty: 30 0RF
oxycodone 5 mg Tablet
5 mg PO TIDPRN PRN (Reason: SEVERE PAIN) Qty: 15 0RF
Continued
famotidine 20 mg Tablet
20 mg PO BID
magnesium oxide 250 mg magnesium Tablet
250 mg PO HS
duloxetine 60 mg Capsule,Delayed Release(Dr/Ec)
60 mg PO HS
cholecalciferol (vitamin D3) [Vitamin D3] 25 mcg (1,000 unit) Tablet
25 mcg PO HS
Changed
acetaminophen [Tylenol Extra Strength] 500 mg Tablet
500 mg PO QID 7 Days Qty: 28 0RF
Discharge Orders:
Discharge Patient (As Directed); Ordered 04/05/24
Ordered By: Gabriele Flowers
Discharge Date and Time
Print Language: [place]
[2024-04-05] MEDS: PEPCID 20 MG PO (11:32)
[2024-04-05] MEDS: SENOKOT-S 1 TABLET PO (11:32)
[2024-04-05] MEDS: LOVENOX 40 MG SC (11:33)
== END 2024-04-05 14:35 | disposition home health service (06) | DRG 502 ==
LOC: 2 SOUTH 23:29
PROVIDERS: ADMITTING PHYSICIAN Hospitalist; ATTENDING PHYSICIAN Hospitalist; CONSULT PHYSICIAN Orthopaedic Surgery; EMERGENCY PHYSICIAN Emergency Medicine; FAMILY PHYSICIAN Family Medicine
PROC: 0MQ40ZZ Repair Left Elbow Bursa and Ligament, Open Approach (ICD-10-PCS; 2024-04-01)
PROC: 0PSL04Z Reposition Left Ulna with Internal Fixation Device, Open Approach (ICD-10-PCS; 2024-04-01)
DX: S52.272B Monteggia's fracture of left ulna, initial encounter for open fracture type I or II (principal); W01.0XXA Fall on same level from slipping, tripping and stumbling without subsequent striking against object, initial encounter; Y92.512 Supermarket, store or market as the place of occurrence of the external cause; G35 Multiple sclerosis; R11.10 Vomiting, unspecified; F32.A Depression, unspecified; F41.9 Anxiety disorder, unspecified; K21.9 Gastro-esophageal reflux disease without esophagitis; Z87.891 Personal history of nicotine dependence; Z88.1 Allergy status to other antibiotic agents; Z88.0 Allergy status to penicillin; K59.00 Constipation, unspecified
CPT/HCPCS: 29105; 73060; 73070; 73080; 73090; 73130; 73200; 76000; 80048; 83036; 85025; 85027; 93005; 96374; 96375; 97116; 97162; 97166; 99285

== ENCOUNTER 2024-04-24 12:39 | Inpatient (IN) | payer MEDICARE, OTHER, SELFPAY ==
[2024-04-23 15:18] VITALS: BP 149/92
--- NOTE | 2024-04-23 15:23 | ED.GENMED ---
ED Provider Triage
<KRISHAN Quinn - Last Filed: 04/23/24 15:25>
-
Patient seen by provider in Triage?: Seen in Triage
Attestation: A medical screening examination has been initiated by a qualified medical provider. Based on the assessment performed at this time, it has been determined that an emergent medical condition may exist and the patient has been informed
that further medical evaluation and possible additional diagnostic testing may be needed.
HPI: Patient is a 59-year-old female complains of epigastric upper abdominal pain since yesterday, not relieved w/ pepcid. Pt is scheduled for upper GI for current s/s (vomiting/heartburn ). No relief w/ pepcid
GENERAL: Alert , in no apparent distress
EYE: No visual abnormalities.
NECK: Trachea midline
ENT: No visible abnormalities.
LUNGS: No acute respiratory distress
NEUROLOGICAL: Alert and oriented
SKIN: Skin intact. No visible changes.
MUSCULOSKELETAL: Moving extremities normally
PSYCH: Normal and appropriate interaction.
This is a medical evaluation conducted in person to initiate diagnostic evaluation and provide initial therapeutics. Please see further documentation by the treating clinician.
History of Present Illness
<KRISHAN Quinn - Last Filed: 04/23/24 15:25>
General
Chief Complaint: Abdominal Pain
Time Seen by Provider: 04/23/24 17:44
<Dorota Calderon MD - Last Filed: 04/23/24 19:21>
General
Source: patient
Exam Limitations: none
Nursing documentation reviewed up to this point in time: agreed with
History of Present Illness
History of Present Illness:
The patient is a 63-year-old female who recently underwent left wrist surgery after suffering an open fracture. Patient reports that she experienced right upper abdominal pain last night that has been persistent and is associated with multiple
episodes of vomiting and mild diarrhea. Patient denies fever. She reports at times the pain goes into her chest. She denies shortness of breath. Currently she denies chest pain.
Past History
<Dorota Calderon MD - Last Filed: 04/23/24 19:21>
Past History
ED Past Medical History: GERD and Psychiatric
ED Past Surgical History: Orthopedic
Social History
Tobacco: Non-smoker
Alcohol: Other
Drug: None
Personal: Other
Living: with family
Employment: Other
Family History
Family History: Other
Review of Systems
<Dorota Calderon MD - Last Filed: 04/23/24 19:21>
Review of Systems
Allergies reviewed?: Yes
Other source history: family
All Other Systems: ROS reviewed and negative except as documented in HPI and ROS
Constitutional: Reports no symptoms
EENT: Reports no symptoms
Respiratory: Reports no symptoms
Cardiac: Reports no symptoms
ABD/GI: Reports abdominal pain, nausea and vomiting
: Reports no symptoms
Musculoskeletal: Reports no symptoms
Skin: Reports no symptoms
Neurological: Reports no symptoms
Endocrine: Reports no symptoms
Hematologic/Lymphatic: Reports no symptoms
Psychiatric: Reports no symptoms
Phy Exam
<Dorota Calderon MD - Last Filed: 04/23/24 19:21>
Physical Exam
Physical Exam:
Physical Exam
General: Patient sitting up in bed, actively vomiting, appears nontoxic but uncomfortable
Neck: supple. no meningeal signs. normal psoterior pharynx
Heart: s1/s2 regular rate and rhythm, no murmur. equal radial pulses.
Lungs: no acute respiratory distress. clear bilaterally
Abdomen: Abdomen is soft. Right upper quadrant tenderness with mild rebound or guarding. No pulsatile mass
Neuro: alert and oriented. no focal neurological deficits
Skin: no rash
Psychiatric: well kept. interactive and cooperative
Extremities: no edema. no calf tenderness. negative homans. good distal pulses
Course
<KRISHAN Quinn - Last Filed: 04/23/24 15:25>
Orders/Labs/Results
Orders:
Orders
04/23/24 14:44
EKG [Electrocardiogram (*1)] Urgent
Reason for Study: Chest Pain
EKG- Treatment ONCE
04/23/24 15:25
US Abdomen Complete/Upper Urgent
Comment:
Reason For Exam: upper abd pain
04/23/24 15:32
Complete Blood Count/With Diff Urgent
Comprehensive Metabolic Panel Urgent
Lipase Urgent
Troponin I Urgent
04/23/24 18:38
0.9% Sodium Chloride 1000 ml [Nss] 1,000 ml IV BOLUS
HYDROmorphone [Dilaudid] 0.5 mg IV NOW STA
Ondansetron Injectable [Zofran] 4 mg IV NOW STA
04/23/24 18:47
Piperacillin/Tazo 4.5 Gram [Zosyn] 4.5 gram in 100 ml IV NOW
Abnormal Lab Results
04/23/24
15:32
Plt Count 496 H 10^3/uL
(130-400)
Abs Immat Gran (auto) 0.1 H 10^3/uL
(0-0.05)
Absolute Neuts (auto) 8.0 H 10^3/uL
(1.4-6.5)
Absolute Monos (auto) 0.7 H 10^3/uL
(0.1-0.6)
Immature Gran % 1.1 H %
(0-0.5)
Neutrophils % 78.5 H %
(42.2-75.2)
Lymphocytes % 12.0 L %
(20.5-51.1)
Creatinine 0.5 L mg/dL
(0.6-1.0)
Glucose 108 H mg/dl
(70-99)
Alkaline Phosphatase 148 H U/L
(38-126)
04/23/24 15:32
04/23/24 15:32
Vital Signs
Initial and Last Documented VS:
Initial Vital Signs
Temp Pulse Resp BP Pulse Ox
98.4 F 88 18 149/92 98
04/23/24 15:18 04/23/24 15:18 04/23/24 15:18 04/23/24 15:18 04/23/24 15:18
Last Documented Vital Signs
Temp Pulse Resp BP Pulse Ox
98.4 F 156 20 143/102 99
04/23/24 15:18 04/23/24 19:10 04/23/24 19:10 04/23/24 19:10 04/23/24 19:10
<Dorota Calderon MD - Last Filed: 04/23/24 19:21>
Orders/Labs/Results
Orders:
Orders
04/23/24 14:44
EKG [Electrocardiogram (*1)] Urgent
Reason for Study: Chest Pain
EKG- Treatment ONCE
04/23/24 15:25
US Abdomen Complete/Upper Urgent
Comment:
Reason For Exam: upper abd pain
04/23/24 15:32
Complete Blood Count/With Diff Urgent
Comprehensive Metabolic Panel Urgent
Lipase Urgent
Troponin I Urgent
04/23/24 18:38
0.9% Sodium Chloride 1000 ml [Nss] 1,000 ml IV BOLUS
HYDROmorphone [Dilaudid] 0.5 mg IV NOW STA
Ondansetron Injectable [Zofran] 4 mg IV NOW STA
04/23/24 18:47
Piperacillin/Tazo 4.5 Gram [Zosyn] 4.5 gram in 100 ml IV NOW
Abnormal Lab Results
04/23/24
15:32
Plt Count 496 H 10^3/uL
(130-400)
Abs Immat Gran (auto) 0.1 H 10^3/uL
(0-0.05)
Absolute Neuts (auto) 8.0 H 10^3/uL
(1.4-6.5)
Absolute Monos (auto) 0.7 H 10^3/uL
(0.1-0.6)
Immature Gran % 1.1 H %
(0-0.5)
Neutrophils % 78.5 H %
(42.2-75.2)
Lymphocytes % 12.0 L %
(20.5-51.1)
Creatinine 0.5 L mg/dL
(0.6-1.0)
Glucose 108 H mg/dl
(70-99)
Alkaline Phosphatase 148 H U/L
(38-126)
04/23/24 15:32
04/23/24 15:32
Vital Signs
Initial and Last Documented VS:
Initial Vital Signs
Temp Pulse Resp BP Pulse Ox
98.4 F 88 18 149/92 98
04/23/24 15:18 04/23/24 15:18 04/23/24 15:18 04/23/24 15:18 04/23/24 15:18
Last Documented Vital Signs
Temp Pulse Resp BP Pulse Ox
98.4 F 156 20 143/102 99
04/23/24 15:18 04/23/24 19:10 04/23/24 19:10 04/23/24 19:10 04/23/24 19:10
<Dorota Calderon MD - Last Filed: 04/23/24 19:21>
MDM/Problems Addressed
Differential Diagnosis Includes:
Symptomatic gallbladder disease, acute cholecystitis, gastritis
MDM/Problems Addressed:
Patient presents with acute right upper quadrant pain and vomiting
Chronic conditions affecting care:
History of GERD
Acute Exacerbation and/or Progression of Chronic Illness:
Patient can have acute exacerbation of chronic GERD
<Dorota Calderon MD - Last Filed: 04/23/24 19:21>
*Radiology
Radiology exam reviewed: radiology read reviewed
*Pulse Oximetry
Patient hypoxic: no
*EKG
Interpreted by ED Provider?: Yes
Interpretation: abnormal
Comparison EKG: no changes
Rate: normal
Rhythm: sinus
[place]: normal axis
Interval: normal interval
QRS Pattern: normal QRS
Ischemia: non-specific ST changes
*Private Pilot Interpretation
Rate: normal
Interpretation: normal
Rhythm: sinus
*Critical Care Note
Total Time (30-74mins, 75-104mins- exclusive of procedures): Not Applicable
Data Reviewed
Review of Other/Old Records Reveals: Discharge Summary (Discharge summary reviewed from March 2024 when patient was admitted for open fracture of left upper extremity)
Source: patient
<Dorota Calderon MD - Last Filed: 04/23/24 19:21>
Patient Management
Social determinants of health affecting care: Living situation and Strong social support
Discussion with other providers: Other (Case discussed with Dr. Hima Umana who recommended IV Zosyn, n.p.o., IV fluids and admit for likely surgery)
Escalation/DeEscalation of care consider admission/obs:
Given patient's ongoing pain and vomiting as well as clinical symptoms and ultrasound findings suggesting acute cholecystitis, decision made to admit patient for IV antibiotics and possible surgery.
ED Attending Note
<KRISHAN Quinn - Last Filed: 04/23/24 15:25>
-
Portions of this chart may have been created with voice recognition software.� Occasional wrong word or��sound alike� substitutions may have occurred due to the inherent limitations of voice recognition software.
Discharge Plan
Departure
Patient Disposition: Admit
Date of Disposition: 04/23/24
Time of Disposition: 18:39
Admit to: Med/Surg
Admit to doctor: Hima Umana, surgery
Presentation/result/management discussed w/ accepting MD/DO: Dr. Umana
Patient with high blood pressure during this ER visit?: Yes
Condition: Fair
Discharge Problem:
Acute cholecystitis
Prescriptions:
No Action
famotidine 20 mg Tablet
20 mg PO BID
magnesium oxide 250 mg magnesium Tablet
250 mg PO HS
duloxetine 60 mg Capsule,Delayed Release(Dr/Ec)
60 mg PO HS
cholecalciferol (vitamin D3) [Vitamin D3] 25 mcg (1,000 unit) Tablet
25 mcg PO HS
oxycodone 5 mg Tablet
5 mg PO TIDPRN PRN (Reason: SEVERE PAIN) Qty: 15 0RF
naproxen sodium [Aleve] 220 mg Tablet
220 mg PO [id number] PRN (Reason: mild pain)
polyethylene glycol 3350 [Miralax] 17 gram powder in packet
17 g PO DAILYPRN PRN (Reason: constipation)
acetaminophen [Tylenol Extra Strength] 500 mg tablet
500 mg PO QIDPRN PRN (Reason: mild pain)
Stand Alone Forms: Bl/Fluid Consent/Declination, Blood Body/Fluid Exposure
Interventions
Interventions:
*Risk Screen - Suicide Last Done: 04/23/24 15:18
*General Assessment Last Done: 04/23/24 15:18
*Neglect/Abuse Screening Last Done: 04/23/24 15:18
VE-Nrkeln-Hzoevqbgir Assessment Last Done: 04/23/24 19:11
ED- Cardiac Assessment Last Done: 04/23/24 19:11
ED-EENT Assessment Last Done: 04/23/24 19:11
ED-Skin Assessment Last Done: 04/23/24 19:13
Discharge Date and Time
Print Language: IRISH
[2024-04-23 15:48] LABS: % Basophils 0.7 % (0-2); % Eosinophils 0.7 % (0-6); % Immature Granulocytes 1.1 % (0-0.5); % Neutrophils 78.5 % (42.2-75.2); Absolute Basophils 0.1 10^3/uL (0-0.2); Absolute Eosinophils 0.1 10^3/uL (0-0.7); Absolute Immature Granulocytes 0.1 10^3/uL (0-0.05); Absolute Lymphocytes 1.2 10^3/uL (1.2-3.4); Absolute Monocytes 0.7 10^3/uL (0.1-0.6); Hematocrit 39.1 % (37.0-47.0); Mean Corp Hgb Conc. 33.2 g/dL (33.0-37.0); Mean Corpuscular Hgb 30.9 pg (27.0-31.0); Mean Corpuscular Volume 92.9 fL (81.0-99.0); Mean Platelet Volume 8.7 fL (7.4-10.4); Nucleated Red Blood Cells % 0 %; Platelet Count 496 10^3/uL (130-400); Red Blood Cell Count 4.21 10^6/uL (4.20-5.40); White Blood Cell Count 10.2 10^3/uL (4.8-10.8)
[2024-04-23 16:08] LABS: ALT (SGPT) 33 U/L (0-35); AST (SGOT) 27 U/L (14-36); Albumin 4.3 g/dl (3.5-5.0); Alkaline Phosphatase 148 U/L (38-126); Blood Urea Nitrogen 11 mg/dl (7-17); Calcium 9.9 mg/dl (8.4-10.2); Carbon Dioxide 26 mmol/L (22-30); Chloride 102 mmol/L (98-107); Glucose 108 mg/dl (70-99); Potassium 4.2 mmol/L (3.5-5.1); Sodium 136 mmol/L (135-145); Total Bilirubin 1.1 mg/dl (0.2-1.3); eGFR > 60.00
[2024-04-23 16:09] LABS: Troponin I < 0.012 ng/ml
[2024-04-23 16:28] LABS: Lipase 163 U/L (23-300)
[2024-04-23] MEDS: NSS 1000 IV (19:04)
[2024-04-23] MEDS: ZOFRAN 4 MG IV ×2 (19:05→22:34)
[2024-04-23] MEDS: DILAUDID 0.5 MG IV (19:05)
[2024-04-23 19:08] VITALS: BP 143/102
[2024-04-23 19:09] VITALS: BMI 29.2
[2024-04-23 19:10] VITALS: BP 143/102
[2024-04-23] MEDS: ZOSYN 100 IV (19:36)
--- NOTE | 2024-04-23 19:56 | HPS.HSE ---
Addendum entered and electronically signed by Campos Calderon MD 04/24/24 08:27:
Patient seen and examined.
Patient is a 63 yo F with a PMH of obesity, depression/anxiety, GERD, s/p laparoscopic appendectomy, and recent LEFT wrist fracture s/p ORIF who presents with 48 hours of RUQ abdominal discomfort. Ms. Borden states that her symptoms began
approximately 2 days ago. She describes persistent RUQ abdominal discomfort prompting presentation to the ED. Associated nausea and vomiting. Associated chills, but no fevers. She notes a looser, yellowish stools. She denies any jaundice, pale
stools, or tea colored urine. She reports prior issues with central chest and epigastric discomfort which she has attributed to GERD. She has been on a PPI and noticed improvement in these other symptoms. Her current discomfort is noticeably
different. Family history notable for a mother post-cholecystectomy.
Gen: NAD
Abd: soft, tender to palpation in RUQ, ND, non-peritoneal, prior incisions well healed
Labs and ultrasound reviewed
Patient is a 63 yo F p/w acute calculus cholecystitis
Labs and CT scan imaging were briefly reviewed. The natural history and pathophysiology of biliary and stone disease was reviewed. Options for management were reviewed. Given her persistent discomfort recommend cholecystectomy.
Plan for laparoscopic cholecystectomy with possible cholangiogram. The procedure itself, as well as the risks, benefits, and alternatives was discussed. Specifically, we discussed the risks of bleeding, infection, injury to surrounding structures
(bowel, bile ducts), CBD injury, need for open procedure. Typical postprocedure recovery including activity restrictions in the 10 to 20% risks of fluctuations in GI function was discussed. All questions answered. Consent signed.
-- Laparoscopic cholecystectomy with IOC
-- NPO, IVF
-- Antibiotics: Zosyn (patient tolerated dose in ED)
-- Pain control: Tylenol and IV Dilaudid as needed
Original Note:
Family Physician
-
Family Physician: Paulino Palencia MD
Chief Complaint
-
RUQ pain x 1 day
History of Present Illness
The patient is a 63-year-old female who recently underwent left wrist surgery after suffering an open fracture. Patient reports that she experienced right upper abdominal pain last night that has been persistent and is associated with multiple
episodes of vomiting and mild diarrhea. Patient denies fever. She reports at times the pain goes into her chest. She denies shortness of breath. Currently she denies chest pain. She initially thought maybe it was GERD but pepcid did not work.
She was unable to sleep last night due to pain. Denies ever having similar pain like this before. Had spaghetti for dinner last night.
Abd US: IMPRESSION:
1).There is cholelithiasis with gallbladder wall thickening to 4 mm and mild pericholecystic edema suggesting possible cholecystitis.
2). There is small volume ascites in the right upper quadrant
3). Diffuse fatty infiltration of the liver
WBC 10.2 with left shift
Good pain relief with dilaudid given in ED
Medical History
Past Medical History
Past Medical History: Reports GERD, Psychiatric (depression/anxiety) and Other (multiple sclerosis- takes no meds )
Past Surgical History: Reports Orthopedic (recent ORIF left wrist mar 2024 for open fx)
Social History
Tobacco: Non-smoker
Alcohol: None
Drug: None
Personal:
Living: With Family
Employment: Employed
Family History
Family History: Not pertinent
Allergies / Home Medications
Allergies reflects when Allergies were last updated in [employer].
Home Medications with original date entered in [employer]
Allergy/Medication List:
Allergies
Allergy/AdvReac Type Severity Reaction Status Date / Time
levofloxacin [From Levaquin] Allergy Unknown Verified 04/23/24 15:18
Penicillins Allergy Rash Verified 04/23/24 15:18
Home Medications
cholecalciferol (vitamin D3) 25 mcg (1,000 unit) tablet (Vitamin D3) 25 mcg PO HS Supplement 04/01/24
duloxetine 60 mg capsule,delayed release 60 mg PO HS Neurological Condition 04/01/24
famotidine 20 mg tablet 20 mg PO BID Gastrointestinal Issue 04/01/24
magnesium oxide 250 mg PO HS Supplement 04/01/24
oxycodone 5 mg tablet 5 mg PO TIDPRN PRN SEVERE PAIN #15 tabs 04/04/24
acetaminophen 500 mg tablet (Tylenol Extra Strength) 500 mg PO QIDPRN PRN mild pain 04/23/24
naproxen sodium 220 mg tablet (Aleve) 220 mg PO [id number] PRN mild pain 04/23/24
polyethylene glycol 3350 17 gram oral powder packet (Miralax) 17 g PO DAILYPRN PRN constipation 04/23/24
Review of Systems
-
History Source: Patient
A 12 point ROS was completed and negative except as noted: Yes
Constitutional: Reports No Symptoms
EENT: Reports No Symptoms
Respiratory: Reports No Symptoms
Cardiac: Reports No Symptoms
Abdomen/GI: Reports Abdominal Pain (RUQ and epigastric), Nausea, Vomiting and Diarrhea (2x bile colored)
: Reports No Symptoms
Musculoskeletal: Reports Other (recent left wrist surgery mar 2024--LUE cast+)
Skin: Reports No Symptoms
Neurological: Reports No Symptoms
Endocrine: Reports No Symptoms
Hematologic/Lymphatic: Reports No Symptoms
Psych: Reports No Symptoms
Physical Exam
Vital Signs
Vital Signs
Temp Pulse Resp BP Pulse Ox
98.4 F 156 20 143/102 99
04/23/24 15:18 04/23/24 19:10 04/23/24 19:10 04/23/24 19:10 04/23/24 19:10
Physical Exam
General: Well Developed, Well Nourished, No Apparent Distress, Comfortable and Pain (improved greatly s/p dilaudid)
HEENT: NormoCephalic, Anicteric, Moist mucous membranes, Atraumatic and Good Dentition
Respiratory: Clear and Non Labored Respirations
Cardiac: S1/S2 and Regular Rhythm (HR 80s-90s (briefly was 150 per ED rN but pt was in severe pain, coming back from BR and vomiting)
Breast: Deferred by me
GI: Normal Bowel Sounds and Tender (+tender to palpation RUQ)
Rectal: Deferred by Provider
Musculoskeletal: No Clubbing, No Cyanosis and Other (LUE in purple cast wrist to elbow)
Skin: Warm and Dry
Neuro: Awake, Alert, Oriented, AO x 3 and No Motor Deficits
Hematologic/Lymphatic: No Lymphadenopathy
Psych: Calm
Laboratory Results
-
04/23/24 15:32
04/23/24 15:32
Laboratory Results
Total Bilirubin 1.1 mg/dl (0.2-1.3) 04/23/24 15:32
AST 27 U/L (14-36) 04/23/24 15:32
ALT 33 U/L (0-35) 04/23/24 15:32
Alkaline Phosphatase 148 U/L (38-126) H 04/23/24 15:32
Troponin I < 0.012 ng/ml 04/23/24 15:32
Lipase 163 U/L (23-300) 04/23/24 15:32
Data Reviewed
-
Ultrasound: Discussed with Physician
Impression/Plan
-
IMPRESSION:
acute cholecystitis
PLAN:
Admit to service of Dr Umana
med surg obs
#Acute cholecystitis
-Clears for tonight NPO x meds after midnight
-ivf Normosol @75
-Pain control dilaudid, tylenol, toradol
-abd US: IMPRESSION:
1).There is cholelithiasis with gallbladder wall thickening to 4 mm and mild pericholecystic edema suggesting possible cholecystitis.
2). There is small volume ascites in the right upper quadrant
3). Diffuse fatty infiltration of the liver
-cbc, bmp in am
-Zosyn given in ED- pt has PCN allergy (rash), will change to cefzolin q8h as she has tolerated this in past.
#GERD
-cont pepcid
#Multiple sclerosis
- asymptomatic not on any active treatment.
#Anxiety/depression.
-Stable.
-Continue preadmission regimen including duloxetine
#s/p open reduction term fixation left type I open Monteggia fracture. mar 2024
-cont to elvated LUE
full code
DVT proph: scd for now since OR pending tomorrow
[2024-04-23 20:00] VITALS: BP 127/71
[2024-04-23 21:00] VITALS: BP 140/73
[2024-04-23 21:30] VITALS: BP 154/71
[2024-04-23] MEDS: VITAMIN D3 (cholecalciferol) 25 MCG PO (22:34)
[2024-04-23] MEDS: CYMBALTA DELAYED RELEASE 60 MG PO (22:34)
[2024-04-23] MEDS: PEPCID 20 MG PO (22:34)
[2024-04-23] MEDS: MAG-TAB SR 84 MG PO (22:34)
[2024-04-23] MEDS: NORMOSOL-R/PLASMALYTE-A 1000 IV (22:39)
[2024-04-24] VITALS (13 sets, daily range): BP systolic 110–157; BP diastolic 60–144
[2024-04-24] MEDS: ANCEF 10 IV (01:00)
--- NOTE | 2024-04-24 02:31 | TRANSFER ---
Received pt from ED at 2119 via stretcher. Pt AAOx3, able to make all needs known. Pt presented w a cast to the LUE d/t a fall, had ORIF of the proximal ulna w Dr. Vyas 04/02. + CMS to left hand. Pt c/o mild pain, RUQ TTP. Pt did not request
pain medication. VS WNL, assessment as documented. Call solorzano within reach, bed in lowest position.
[2024-04-24] MEDS: TORADOL 10 MG IV ×2 (06:13→18:00)
[2024-04-24] MEDS: ZOFRAN 4 MG IV (06:13)
[2024-04-24 07:16] LABS: % Basophils 0.4 % (0-2); % Eosinophils 0.1 % (0-6); % Immature Granulocytes 0.4 % (0-0.5); % Lymphocytes 8.4 % (20.5-51.1); % Neutrophils 83.7 % (42.2-75.2); Absolute Basophils 0.1 10^3/uL (0-0.2); Absolute Immature Granulocytes 0.1 10^3/uL (0-0.05); Absolute Lymphocytes 1.4 10^3/uL (1.2-3.4); Absolute Monocytes 1.2 10^3/uL (0.1-0.6); Absolute Neutrophils 13.7 10^3/uL (1.4-6.5); Hematocrit 36.8 % (37.0-47.0); Hemoglobin 12.1 g/dL (12.0-16.0); Mean Corp Hgb Conc. 32.9 g/dL (33.0-37.0); Mean Corpuscular Hgb 30.6 pg (27.0-31.0); Mean Corpuscular Volume 93.2 fL (81.0-99.0); Mean Platelet Volume 9.2 fL (7.4-10.4); Nucleated Red Blood Cells % 0 %; Platelet Count 469 10^3/uL (130-400); Red Blood Cell Count 3.95 10^6/uL (4.20-5.40); Red Cell Dist. Width 13.1 % (11.5-14.5); White Blood Cell Count 16.4 10^3/uL (4.8-10.8)
[2024-04-24 07:48] LABS: ALT (SGPT) 29 U/L (0-35); AST (SGOT) 21 U/L (14-36); Albumin 3.9 g/dl (3.5-5.0); Alkaline Phosphatase 143 U/L (38-126); Blood Urea Nitrogen 7 mg/dl (7-17); Calcium 9.1 mg/dl (8.4-10.2); Carbon Dioxide 22 mmol/L (22-30); Chloride 103 mmol/L (98-107); Estimated Creatinine Clearance 93 ml/min; Glucose 124 mg/dl (70-99); Potassium 4.2 mmol/L (3.5-5.1); Sodium 137 mmol/L (135-145); Total Protein 6.4 g/dl (6.3-8.2); eGFR > 60.00
[2024-04-24] MEDS: PEPCID 20 MG PO ×2 (08:09→19:46)
--- NOTE | 2024-04-24 10:21 | W.SUR.PREOP ---
Pre-Operative Surgical Note
-
I have examined this patient prior to the performance of the scheduled procedure.
The patient's condition is unchanged from the time of the current History and
Physical and the patient is able to undergo the scheduled procedure.
--- NOTE | 2024-04-24 11:07 | CM ---
Patient chart reviewed.
Unavailable - OR at this time
PLAN: CM to follow up with patient for dispo planning
--- NOTE | 2024-04-24 12:36 | W.IMMPOSTOP ---
Surgical Immed Post Op Note
-
Primary Surgeon: Yumiko
Assisting Surgeon: VANCE Birch
Pre-op Diagnosis: Acute cholecystitis
Post-op Diagnosis: Acute cholecystitis and choledocholithiasis
Procedure Performed: Laparoscopic cholecystectomy with IOC and LCBDE
Anesthesia Type: General
Specimen / Cultures:
1. Gallbladder
Estimated Blood Loss: 11 cc
Complications: None
Operative Findings:
1. Acutely inflamed GB with wall thickening and edema, moderate fatty liver disease, intra-hepatic GB
2. IOC with anatomy confirmed and distal CBD obstruction, Glucagon --> wire --> catheter appeared to have cleared
3. Duct marked with clips and taken with PDS Endoloop, artery with clips
Plan:
-- Clears for today
-- Repeat CMP in AM
-- Abx: Zosyn (or Augmentin) for 4 days post-op
[2024-04-24] MEDS: ZOSYN IV (13:16)
--- NOTE | 2024-04-24 14:43 | PTCARENOTE ---
Received patient from PACU via bed around 1425 in stable condition. 5 lap sites with surgical glue intact. VS stable. Patient ambulated to bathroom. Voided x 1. Patient resting in bed. Call solorzano in reach.
[2024-04-24] MEDS: TYLENOL 650 MG PO ×2 (15:34→19:46)
[2024-04-24] MEDS: ZOSYN 50 IV ×2 (15:34→22:16)
[2024-04-24] MEDS: NORMOSOL-R/PLASMALYTE-A 1000 IV (15:38)
[2024-04-24] MEDS: LOVENOX 40 MG SC (17:58)
[2024-04-24] MEDS: ROXICODONE 5 MG PO (20:23)
[2024-04-24] MEDS: CYMBALTA DELAYED RELEASE 60 MG PO (22:16)
[2024-04-24] MEDS: VITAMIN D3 (cholecalciferol) PO (22:17)
[2024-04-24] MEDS: MAG-TAB SR PO (22:17)
[2024-04-25] MEDS: TYLENOL PO
[2024-04-25] MEDS: ROXICODONE 5 MG PO (04:02)
[2024-04-25] MEDS: TYLENOL 650 MG PO ×3 (04:02→11:02)
[2024-04-25] MEDS: ZOSYN 50 IV ×2 (04:02→11:02)
[2024-04-25] MEDS: NORMOSOL-R/PLASMALYTE-A 1000 IV (04:30)
[2024-04-25 06:49] LABS: Hematocrit 32.7 % (37.0-47.0); Hemoglobin 10.7 g/dL (12.0-16.0); Mean Corp Hgb Conc. 32.7 g/dL (33.0-37.0); Mean Corpuscular Hgb 30.6 pg (27.0-31.0); Mean Corpuscular Volume 93.4 fL (81.0-99.0); Mean Platelet Volume 9.1 fL (7.4-10.4); Platelet Count 377 10^3/uL (130-400); Red Cell Dist. Width 12.8 % (11.5-14.5); White Blood Cell Count 13.3 10^3/uL (4.8-10.8)
[2024-04-25 07:12] LABS: ALT (SGPT) 241 U/L (0-35); AST (SGOT) 226 U/L (14-36); Albumin 3.3 g/dl (3.5-5.0); Alkaline Phosphatase 233 U/L (38-126); Blood Urea Nitrogen 10 mg/dl (7-17); Calcium 9.6 mg/dl (8.4-10.2); Carbon Dioxide 27 mmol/L (22-30); Chloride 102 mmol/L (98-107); Estimated Creatinine Clearance 93 ml/min; Glucose 120 mg/dl (70-99); Sodium 137 mmol/L (135-145); Total Bilirubin 0.8 mg/dl (0.2-1.3); Total Protein 5.7 g/dl (6.3-8.2); eGFR > 60.00
[2024-04-25 07:23] VITALS: BP 124/76
[2024-04-25] MEDS: PEPCID 20 MG PO (08:42)
--- NOTE | 2024-04-25 09:40 | W.PN.GS2 ---
Today's Communication / Plan
-
dispo planning
Assessment / Plan
-
63 yo female presenting with ACC now POD #1 lap coco with choledocholithiasis noted on IOC which was able to be cleared
AFVSS
Leukocytosis improved
Transaminitis present as expected with normal bilirubin
Following expected post op course
--Advance to LFD
--Analgesics prn
--OOB/Ambulate
--D/C IVF
--Discharge to home once tolerating diet
Subjective Data
-
Date of Service: April 25, 2024
Patient seen and examined at bedside with Dr. Sutton. Talita n/v. Tolerating clears. Some soreness to incisions but manageable.
Objective Data
-
Intake and Output
04/24/24 04/25/24 04/26/24
06:59 06:59 06:59
Intake Total 585 / 585 1355 / 1355 940 / 940
Output Total 550 / 550
Balance 585 / 585 805 / 805 940 / 940
Intake:
Oral fluids 240 / 240 480 / 480
IV fluids (Total) 345 / 345 825 / 825 840 / 840
Normosol 300 / 300
IV piggybacks 50 / 50 100 / 100
Output:
Urine, Voided 550 / 550
Other:
Number of approximated MODERATE 3 1 1
amounts of urine
Vital Signs
Temp Pulse Resp BP Pulse Ox
97.4 F 66 14 124/76 93
04/25/24 07:23 04/25/24 07:23 04/25/24 07:23 04/25/24 07:23 04/25/24 07:23
Lab Results
04/25/24 06:21
04/25/24 06:21
Calcium 9.6 mg/dl (8.4-10.2) 04/25/24 06:21
Total Bilirubin 0.8 mg/dl (0.2-1.3) 04/25/24 06:21
AST 226 U/L (14-36) H 04/25/24 06:21
ALT 241 U/L (0-35) H 04/25/24 06:21
Alkaline Phosphatase 233 U/L (38-126) H 04/25/24 06:21
Total Protein 5.7 g/dl (6.3-8.2) L 04/25/24 06:21
Albumin 3.3 g/dl (3.5-5.0) L 04/25/24 06:21
Physical Exam
-
NAD
ABD soft, mild incisional tenderness, ND
Incisions well approximated with intact glue
--- NOTE | 2024-04-25 09:43 | W.DS.TRANS ---
Addendum entered and electronically signed by KRISHAN Frausot 05/01/24 08:09:
dictated #[id number]
Original Note:
DC Summary - Analysis Analyst
-
Discharge Instructions:
Discharge Diagnosis/Procedures Cholecystitis status post laparoscopic
cholecystectomy
Diet As tolerated
Additional Diets If you have loose stools after surgery, eat a
low fat diet
Activity No strenuous activity
Additional Activity Do not lift over 15lbs for the next 2-3 weeks
Driving Restrictions Wait until off narcotics/comfortable twisting
Bathing Restrictions OK to Shower
Wound Care Ok to wash incisions gently with soap and water.
The glue over your incisions will flake off on
its own in 2-3 weeks. Do not scrub or pick off
the glue.
Instructions:
Stand-Alone Forms:
Changes to Home Medications: No
Discharge Medications:
DC Medications w/original date entered in [employer]
cholecalciferol (vitamin D3) 25 mcg (1,000 unit) tablet (Vitamin D3) 25 mcg PO HS Supplement 04/01/24
duloxetine 60 mg capsule,delayed release 60 mg PO HS Neurological Condition 04/01/24
famotidine 20 mg tablet 20 mg PO BID Gastrointestinal Issue 04/01/24
magnesium oxide 250 mg PO HS Supplement 04/01/24
acetaminophen 500 mg tablet (Tylenol Extra Strength) 500 mg PO QIDPRN PRN mild pain 04/23/24
naproxen sodium 220 mg tablet (Aleve) 220 mg PO [id number] PRN mild pain 04/23/24
polyethylene glycol 3350 17 gram oral powder packet (Miralax) 17 g PO DAILYPRN PRN constipation 04/23/24
oxycodone 5 mg tablet 5 mg PO TIDPRN PRN SEVERE PAIN #8 tabs 04/25/24
Home Medication Changes
Pending Results: No
[2024-04-25 11:52] VITALS: BP 93/67
[2024-04-25] MEDS: NORMOSOL-R/PLASMALYTE-A IV (13:22)
[2024-04-25] MEDS: TORADOL 10 MG IV (14:39)
--- NOTE | 2024-04-25 15:12 | CM ---
IA completed with pt.
Pt is a 63yr old female admitted on OBS for acute cholecystitis.
Pt has a previous admission in 04/07 for Ulna ORIF.
Pt has hx of MS and lives with her and son in a 1 story home and 0steps to enter.
Pt is indep at baseline and does not use any equipment. Pt does have a RW and commode.
Post ORIF, pt did get single visit from [facility]. Pt denies need for VN at dc from this admission. No SNF hx
PCP; Paulino Palencia
Pharm; [facility]
PLAN; DC to home with no needs.
== END 2024-04-25 14:56 | disposition home or self-care (01) | DRG 413 ==
LOC: 2 SOUTH 12:39
PROVIDERS: Emergency Medicine; Nurse Practitioner Family; Registered Nurse; Surgery; ADMITTING PHYSICIAN Surgery; EMERGENCY PHYSICIAN Emergency Medicine; FAMILY PHYSICIAN Family Medicine
PROC: 0FJB4ZZ Inspection of Hepatobiliary Duct, Percutaneous Endoscopic Approach (ICD-10-PCS; 2024-04-24)
PROC: 0FT44ZZ Resection of Gallbladder, Percutaneous Endoscopic Approach (ICD-10-PCS; 2024-04-24)
PROC: BF131ZZ Fluoroscopy of Gallbladder and Bile Ducts using Low Osmolar Contrast (ICD-10-PCS; 2024-04-24)
DX: K80.63 Calculus of gallbladder and bile duct with acute cholecystitis with obstruction (principal); E66.9 Obesity, unspecified; F41.9 Anxiety disorder, unspecified; F32.A Depression, unspecified; K21.9 Gastro-esophageal reflux disease without esophagitis; G35 Multiple sclerosis; K76.0 Fatty (change of) liver, not elsewhere classified; R74.01 Elevation of levels of liver transaminase levels; Z68.30 Body mass index [BMI] 30.0-30.9, adult
CPT/HCPCS: 47563; 88304; 74300; 76000; 76700; 80053; 83690; 84484; 85025; 85027; 93005; 96365; 96375; 99285; A4300; G0378; J1610